=== PATIENT | male | born 1960 | race Caucasian/White ===

== ENCOUNTER 2022-07-26 10:02 | Day surgery (SDC) | payer OTHER ==
[~2022-07-26] VITALS: Ht 182.9 cm; Wt 95.4 kg
[2022-07-26] MEDS ORDERED: NO HOME MEDS (10:09)
[2022-07-26 10:12] VITALS: BP 136/92
[2022-07-26] MEDS ORDERED: MIDAZolam 1 MG/ML 5ML VIAL ONE ×2 (10:13)
[2022-07-26] MEDS ORDERED: fentaNYL/PF 50MCG/1 ML 2ML syringe ONE (10:13)
[2022-07-26] MEDS ORDERED: diphenhydrAMINE 50 mg/ml inj ONE (10:13)
[2022-07-26 10:50] VITALS: BP 109/69
[2022-07-26 11:00] VITALS: BP 98/62
[2022-07-26 11:10] VITALS: BP 96/55
[2022-07-26 11:20] VITALS: BP 99/65
== END 2022-07-26 11:30 | disposition home or self-care (01) ==
LOC: GI LAB 10:02
PROVIDERS: ATTEND Internal Medicine Gastroenterology
DX: Z12.11 Encounter for screening for malignant neoplasm of colon (principal); K57.30 Diverticulosis of large intestine without perforation or abscess without bleeding; K64.8 Other hemorrhoids; F17.210 Nicotine dependence, cigarettes, uncomplicated
CPT/HCPCS: 45378; 99152; J2250; J3010; J7030; Z7512; A4620; J1200